=== PATIENT | male | born 1965 ===

== ENCOUNTER 2020-11-13 08:19 | Inpatient (IN) | payer OTHER ==
[~2020-11-13] VITALS: Ht 180.3 cm; Wt 107.4 kg
[2020-11-13] MEDS ORDERED: SODIUM CHLORIDE 0.9% 1,000 ML IV ONE ×3 (08:45→18:30)
[2020-11-13 08:56] LABS: Eosinophils # (auto) 0.2 10 ^3/uL (0-0.8); Eosinophils % (auto) 3.2 % (0.0-7.0); Monocytes # (auto) 0.5 10 ^3/uL (0-1.3); Neutrophils # (auto) 3.5 10 ^3/uL (1.6-8.6); Nucleated Red Blood Cells % 0.2 %
[2020-11-13 08:58] LABS: Basophils # (auto) 0.1 10 ^3/uL (0-0.2); Basophils % (auto) 1.3 % (0.0-2.0); Hematocrit 51.3 % (41.0-53.0); Hemoglobin 17.7 g/dL (13.5-17.5); Lymphocytes # (auto) 1.7 10 ^3/uL (0.4-5.4); Lymphocytes % (auto) 28.2 % (10.0-50.0); Mean Corpuscular Hemoglobin 28.4 pg (28.0-32.0); Mean Corpuscular Hgb Conc. 34.4 g/dL (32.0-36.0); Mean Corpuscular Volume 82.6 fL (80.0-100.0); Neutrophils % (auto) 58.3 % (37.0-80.0); Red Blood Cells 6.22 10^6/uL (4.5-5.90); Red Cell Distribution Width 13.5 % (11.8-14.3)
[2020-11-13] MEDS ORDERED: AZITHROMYCIN 500MG/ 250ML 250 ML IV ONE (09:30)
[2020-11-13] MEDS ORDERED: DexAMETHasone SOD PHOS 10MG/1ML VIAL INJ IV ONE (09:30)
[2020-11-13] MEDS ORDERED: cefTRIAXone 1GM/50ML D5W 50 ML IV ONE (09:30)
[2020-11-13 09:35] LABS: Albumin 3.4 g/dL (3.4-5.0); Anion Gap 9 (5-15); Blood Urea Nitrogen 10 mg/dL (7-18); Calcium 8.7 mg/dL (8.5-10.1); Carbon Dioxide 21 mmol/L (21-32); Chloride 104 mmol/L (98-107); Glucose 103 mg/dL (74-106); Potassium 3.6 mmol/L (3.5-5.1); Sodium 134 mmol/L (136-145)
[2020-11-13 09:40] LABS: Alanine Aminotransferase 82 U/L (16-61); Alkaline Phosphatase 64 U/L (45-117); Aspartate Aminotransferase 54 U/L (15-37); BUN/Creatinine Ratio 12.8; Bilirubin, Total 1.5 mg/dL (0.2-1.0); GFR African American 133 mL/min; GFR Non-African American 110 mL/min; Total Protein 7.8 g/dL (6.4-8.2)
[2020-11-13] MEDS ORDERED: ENOXAPARIN SOD 40 MG/0.4 ML SYRINGE SC SCH (17:00)
[2020-11-13] MEDS ORDERED: MORPHINE SULFATE INJECTION 2 MG/2 ML SYRG IV PRN ×2 (18:30)
[2020-11-13] MEDS ORDERED: ALBUTEROL SULF 2.5 MG/0.5ML(0.5%) NEB SOLN NEB PRN (18:30)
[2020-11-13] MEDS ORDERED: DOCUSATE CALCIUM 240 MG CAP PO PRN (18:30)
[2020-11-13] MEDS ORDERED: IPRATROPIUM BROM 0.5 MG/2.5ML INH SOL NEB PRN (18:30)
[2020-11-13] MEDS ORDERED: LORazepam 0.5 MG TAB PO PRN (18:30)
[2020-11-13] MEDS ORDERED: hydrALAZINE HCL 20 MG/ML VL IV PRN (18:30)
[2020-11-13] MEDS ORDERED: ONDANSETRON HCL 4 MG/2 ML VIAL IV PRN (18:30)
[2020-11-13] MEDS ORDERED: NITROGLYCERIN 0.4 MG SL TAB SL PRN (18:30)
[2020-11-13 18:54] VITALS: BP 155/113
[2020-11-13] MEDS: SODIUM CHLORIDE 0.9% 1,000 ML IV SCH (19:40)
[2020-11-13] MEDS: ENOXAPARIN SOD 40 MG/0.4 ML SYRINGE SC SCH (20:32)
[2020-11-14] MEDS: SODIUM CHLORIDE 0.9% 1,000 ML IV SCH (04:30)
[2020-11-14 05:01] LABS: Urine Bacteria FEW /hpf (None Seen); Urine Blood Negative /uL (Negative); Urine Specific Gravity 1.012 (1.001-1.035); Urine WBC 2 /hpf (0 - 3)
[2020-11-14 08:02] LABS: Basophils # (auto) 0.1 10 ^3/uL (0-0.2); Basophils % (auto) 0.9 % (0.0-2.0); Eosinophils # (auto) 0 10 ^3/uL (0-0.8); Eosinophils % (auto) 0.2 % (0.0-7.0); Hematocrit 45.3 % (41.0-53.0); Hemoglobin 15.3 g/dL (13.5-17.5); Lymphocytes % (auto) 21.7 % (10.0-50.0); Mean Corpuscular Hemoglobin 28.1 pg (28.0-32.0); Mean Corpuscular Hgb Conc. 33.9 g/dL (32.0-36.0); Monocytes # (auto) 0.9 10 ^3/uL (0-1.3); Neutrophils # (auto) 6.2 10 ^3/uL (1.6-8.6); Neutrophils % (auto) 67.2 % (37.0-80.0); Red Blood Cells 5.45 10^6/uL (4.5-5.90); Red Cell Distribution Width 13.3 % (11.8-14.3); White Blood Cell 9.2 10^3/uL (4.4-10.8)
[2020-11-14 08:16] LABS: INR 1.26 (0.9-1.15)
[2020-11-14 08:27] LABS: Albumin 2.8 g/dL (3.4-5.0); Calcium 8.6 mg/dL (8.5-10.1); Potassium 4.1 mmol/L (3.5-5.1)
[2020-11-14 08:34] LABS: BUN/Creatinine Ratio 18.6; Total Protein 6.5 g/dL (6.4-8.2)
[2020-11-14] MEDS: cefTRIAXone 1GM/50ML D5W 50 ML IV SCH (09:00)
[2020-11-14 09:14] VITALS: BP 128/90
[2020-11-14] MEDS: AZITHROMYCIN 500MG/ 250ML 250 ML IV SCH (10:00)
[2020-11-14] MEDS: PANTOPRAZOLE 40 MG TAB PO SCH (10:00)
[2020-11-14] MEDS: ALBUTEROL SULF HFA 90MCG INH 200DOSE IN SCH ×2 (11:40→22:00)
[2020-11-14 13:00] VITALS: BP 135/97
[2020-11-14] MEDS ORDERED: IOHEXOL 350 MG/ML 100ML IJ ONE (15:10)
[2020-11-14] MEDS ORDERED: REMDESIVIR PER PHARMACY 0 ML IV SCH (15:15)
[2020-11-14] MEDS ORDERED: REMDESIVIR 200 MG in NS 210ml LOADING DOSE ADULT IV ONE (16:00)
[2020-11-14 17:00] VITALS: BP 143/94
[2020-11-14] MEDS: ENOXAPARIN SOD 40 MG/0.4 ML SYRINGE SC SCH (17:37)
[2020-11-14] MEDS: ACETAMINOPHEN 500 MG TAB PO PRN (18:13)
[2020-11-14 22:00] VITALS: BP 146/105
[2020-11-15] MEDS: ACETAMINOPHEN 500 MG TAB PO PRN (02:13)
[2020-11-15 05:00] VITALS: BP 131/90
[2020-11-15] MEDS: ENOXAPARIN SOD 40 MG/0.4 ML SYRINGE SC SCH ×2 (06:17→17:50)
[2020-11-15 06:53] LABS: Albumin 2.8 g/dL (3.4-5.0); Calcium 8.5 mg/dL (8.5-10.1); Potassium 4.2 mmol/L (3.5-5.1)
[2020-11-15 06:56] LABS: BUN/Creatinine Ratio 14.3; Bilirubin, Total 0.7 mg/dL (0.2-1.0); Total Protein 6.4 g/dL (6.4-8.2)
[2020-11-15] MEDS: ALBUTEROL SULF HFA 90MCG INH 200DOSE IN SCH ×2 (07:22→21:08)
[2020-11-15 08:00] VITALS: BP 147/92
[2020-11-15] MEDS: cefTRIAXone 1GM/50ML D5W 50 ML IV SCH (08:57)
[2020-11-15 09:00] VITALS: BP 152/100
[2020-11-15] MEDS: AZITHROMYCIN 500MG/ 250ML 250 ML IV SCH (10:10)
[2020-11-15] MEDS: PANTOPRAZOLE 40 MG TAB PO SCH (10:10)
[2020-11-15] MEDS ORDERED: LOPERAMIDE 1 mg/7.5ml ORAL soln PO PRN (12:15)
[2020-11-15 13:00] VITALS: BP 141/110
[2020-11-15] MEDS: REMDESIVIR 100mg 100 MG in SODIUM CHL 0.9% 230 ML IV SCH (15:09)
[2020-11-15 15:44] VITALS: BP 138/105
[2020-11-15 22:00] VITALS: BP 136/106
[2020-11-16] VITALS (8 sets, daily range): BP systolic 126–157; BP diastolic 90–107
[2020-11-16] MEDS: ACETAMINOPHEN 500 MG TAB PO PRN ×3 (01:12→21:13)
[2020-11-16] MEDS: ENOXAPARIN SOD 40 MG/0.4 ML SYRINGE SC SCH ×2 (05:17→17:45)
[2020-11-16 07:16] LABS: Albumin 3.1 g/dL (3.4-5.0); Calcium 8.6 mg/dL (8.5-10.1); Potassium 3.6 mmol/L (3.5-5.1)
[2020-11-16 07:20] LABS: BUN/Creatinine Ratio 15.5; Bilirubin, Total 0.9 mg/dL (0.2-1.0); Total Protein 6.7 g/dL (6.4-8.2)
[2020-11-16] MEDS: cefTRIAXone 1GM/50ML D5W 50 ML IV SCH (09:09)
[2020-11-16] MEDS: ALBUTEROL SULF HFA 90MCG INH 200DOSE IN SCH (09:46)
[2020-11-16] MEDS ORDERED: LOSARTAN POTASSIUM 25 MG TAB PO ONE (10:30)
[2020-11-16] MEDS: PANTOPRAZOLE 40 MG TAB PO SCH (10:34)
[2020-11-16] MEDS: AZITHROMYCIN 500MG/ 250ML 250 ML IV SCH (10:34)
[2020-11-16] MEDS: REMDESIVIR 100mg 100 MG in SODIUM CHL 0.9% 230 ML IV SCH (15:52)
[2020-11-17] MEDS: ENOXAPARIN SOD 40 MG/0.4 ML SYRINGE SC SCH (05:27)
[2020-11-17] MEDS: ACETAMINOPHEN 500 MG TAB PO PRN (05:27)
[2020-11-17 05:28] VITALS: BP 134/92
[2020-11-17 06:36] LABS: Albumin 3.1 g/dL (3.4-5.0)
[2020-11-17 06:41] LABS: BUN/Creatinine Ratio 15.2; Total Protein 6.9 g/dL (6.4-8.2)
[2020-11-17 08:00] VITALS: BP 133/92
[2020-11-17] MEDS ORDERED: ALBUTEROL SULF HFA 90MCG INH 200DOSE IN PRN (08:30)
[2020-11-17 09:00] VITALS: BP 123/90
[2020-11-17] MEDS: cefTRIAXone 1GM/50ML D5W 50 ML IV SCH (09:20)
[2020-11-17] MEDS ORDERED: LOSARTAN POTASSIUM 25 MG TAB PO SCH (10:00)
[2020-11-17] MEDS: AZITHROMYCIN 500MG/ 250ML 250 ML IV SCH (10:43)
[2020-11-17] MEDS ORDERED: ALBUAER3 IN (12:12)
[2020-11-17] MEDS ORDERED: ASPI-231 PO (12:12)
[2020-11-17] MEDS ORDERED: LOS25T PO (12:12)
[2020-11-17 13:00] VITALS: BP 134/100
[2020-11-17] MEDS: REMDESIVIR 100mg 100 MG in SODIUM CHL 0.9% 230 ML IV SCH (13:23)
[2020-11-17 13:30] VITALS: BP 123/90
== END 2020-11-17 15:10 | disposition home or self-care (01) | DRG 177 ==
LOC: ER 08:19 → TELE 18:19 → TELE-EAST 11-14 08:17 → EAST 11-16 15:36
PROVIDERS: ADMIT Family Medicine; ATTEND Internal Medicine
PROC: XW033E5 Introduction of Remdesivir Anti-infective into Peripheral Vein, Percutaneous Approach, New Technology Group 5 (ICD-10-PCS; principal; 2020-11-14)
DX: U07.1 COVID-19 (principal); J12.82 Pneumonia due to coronavirus disease 2019; E87.1 Hypo-osmolality and hyponatremia; K57.30 Diverticulosis of large intestine without perforation or abscess without bleeding; E27.8 Other specified disorders of adrenal gland; E78.5 Hyperlipidemia, unspecified; E66.01 Morbid (severe) obesity due to excess calories; R35.0 Frequency of micturition; E86.0 Dehydration; I10 Essential (primary) hypertension; Z82.49 Family history of ischemic heart disease and other diseases of the circulatory system; Z83.3 Family history of diabetes mellitus; Z79.899 Other long term (current) drug therapy; Z68.33 Body mass index [BMI] 33.0-33.9, adult
CPT/HCPCS: 36415; 71045; 71275; 74176; 80053; 81001; 82728; 83036; 84154; 84443; 84484; 85025; 85379; 85610; 86141; 87426; 93970; 94640; 96365; 96368; 96375; G0378; J0696; J1100